=== PATIENT | female | born 1970 | race Caucasian/White ===

== ENCOUNTER 2018-01-05 12:00 | Outpatient (REF) | payer BC, SELFPAY ==
[2018-01-07 18:07] LABS: Cortisol, U 18 mcg/24 h (3.5-45); Urine Volume 1925 mL
== END 2018-01-05 12:20 ==
LOC: LBN 12:00
PROVIDERS: Visit Provider Internal Medicine Endocrinology, Diabetes & Metabolism
DX: R63.5 Abnormal weight gain (principal)
CPT/HCPCS: 81050; 82530; 83789

== ENCOUNTER 2018-01-07 08:13 | Outpatient (REF) | payer BC, SELFPAY ==
[2018-01-11 21:45] LABS: Cortisol, U 21 mcg/24 h (3.5-45); Urine Volume 2125 mL
== END 2018-01-07 08:33 ==
LOC: LBN 08:13
PROVIDERS: Internal Medicine Endocrinology, Diabetes & Metabolism; PCP Physician Assistant Medical; Visit Provider Physician Assistant Medical
DX: R63.5 Abnormal weight gain (principal)
CPT/HCPCS: 81050; 82530; 83789

== ENCOUNTER 2018-01-10 07:42 | Outpatient (CLI) | payer BC, SELFPAY ==
[2018-01-10 22:28] LABS: Dexamethasone Suppression 1 ug/dl
== END 2018-01-10 08:02 ==
PROVIDERS: PCP Physician Assistant Medical; Visit Provider Internal Medicine Endocrinology, Diabetes & Metabolism
DX: R63.5 Abnormal weight gain (principal)
CPT/HCPCS: 36415; 82533

== ENCOUNTER 2018-02-03 00:24 | Outpatient (CLI) | payer BC, SELFPAY ==
--- NOTE | 2018-02-03 09:00 | DI.US_ITS ---
SYMPTOM/DIAGNOSIS: NECK MASS, R22.1 SOFT TISSUE NECK ULTRASOUND: Soft tissue ultrasound of the right inferior cervical region was performed to evaluate palpable abnormalities. There are two rounded, low echogenicity but solid masses seen in the supraclavicular region measuring about 2 and 3 mm. in greatest diameter respectively, these appear essentially unchanged in comparison with the previous examination of 07/21/17. CONCLUSION: Stable small solid masses or cysts as described above.
== END 2018-02-03 00:44 ==
PROVIDERS: PCP Physician Assistant Medical; Visit Provider Otolaryngology
DX: R22.1 Localized swelling, mass and lump, neck (principal)
CPT/HCPCS: 76536

== ENCOUNTER 2018-04-12 14:34 | Emergency (ER) | payer BC, SELFPAY ==
[2018-04-12 14:36] VITALS: BP 162/86; PULSE 18; RESP 18; TEMP 36.9; O2SAT 98
--- NOTE | 2018-04-12 14:48 | W.ED.GENAD ---
Discharge Plan Disposition Patient Disposition: HOME Condition: Stable Discharge Details Chief Complaint: RespSymp Clinical Impression: Right maxillary sinusitis Primary Care Provider: Lina Gordon ED Provider: Stephon Birmingham Home Meds and New Rx's Prescriptions: New amoxicillin-pot clavulanate 875-125 mg tablet 1 tab PO BID 10 Days Qty: 20 RF: 0 Continued furosemide [Lasix] 20 MG tablet 20 mg PO DAILY RF: 0 diltiazem HCl 120 MG tablet 180 mg PO DAILY RF: 0 albuterol sulfate 8.5 GM HFA aerosol inhaler 1 puff Inhalation PRN RF: 0 montelukast [Singulair] 10 MG tablet 10 mg PO DAILY RF: 0 armodafinil [Nuvigil] 250 MG tablet 250 mg PO DAILY RF: 0 albuterol sulfate 2.5 MG/3 ML solution for nebulization 2.5 mg Inhalation QID PRN PRN (Reason: Wheezing) Qty: 20 RF: 0 propranolol 10 MG tablet 10 mg PO DAILY RF: 0 Discharge Instructions Instructions: Sinusitis (ED) Additional Instructions: Home to rest today. Small, frequent sips of fluids to maintain hydration. Take antibiotics as prescribed. Continue all regular medications. Follow-up with regular doctor if not improving in 5 days time. Return to the ER for any acute concerns Medical Decision Making 47-year-old female with underlying reactive airway disease presents with 2-3 days of cough, congestion, production of green sputum and now with right ear pain. Chest. A right otitis media and her presentation is consistent with bronchitis with sinusitis. I will treat with a course of Augmentin. Do not feel that she requires steroids as there is no significant wheeze & she subjectively does not have shortness of breath. Oxygenation is normal. Discussed with her home management. She stable for discharge at this time. HPI General Mode of arrival: ambulatory. Date/Time Provider Initiated Documentation: 04/12/18 14:41. Limitations to Documentation: no limitations. Information obtained by: patient. History of Present Illness 47 year old F presents to the emergency department with the chief complaint of Cough and congestion with right ear pain, sputum production, x2d, described as moderate, and is localized to the face and right. Patient reports no radiation. Patient started experiencing this day(s) and it has been constant. No relieving factors improve symptom(s), No exacerbating factors reported . Patient notes cough and fever/chills; denies shortness of breath. Related Data Home Medications Medication Instructions Recorded Confirmed albuterol sulfate 1 puff INHALATION PRN 09/18/13 05/07/16 albuterol sulfate 2.5 mg INHALATION QID PRN PRN #20 01/07/16 04/12/18 vial armodafinil [Nuvigil] 250 mg PO DAILY 01/07/16 04/12/18 montelukast [Singulair] 10 mg PO DAILY 01/07/16 04/12/18 propranolol 10 mg PO DAILY 04/20/16 04/12/18 furosemide [Lasix] 20 mg PO DAILY tab-cap 05/27/16 04/12/18 diltiazem HCl 180 mg PO DAILY 01/28/17 04/12/18 amoxicillin-pot clavulanate 1 tab PO BID 10 Days #20 tab 04/12/18 Previous Rx's Medication Instructions Recorded albuterol sulfate 2.5 mg INHALATION QID PRN PRN #20 01/07/16 vial amoxicillin-pot clavulanate 1 tab PO BID 10 Days #20 tab 04/12/18 Allergies Allergy/AdvReac Type Severity Reaction Status Date / Time DANDER Allergy Intermediate Uncoded 01/11/17 09:38 DUST Allergy Mild Uncoded 01/11/17 09:38 MOLD MILDEW Allergy Mild Uncoded 01/11/17 09:38 TREES Allergy Mild Uncoded 01/11/17 09:38 General Stated Complaint: RespSymp WESLY: 3 Review of Systems Review of Systems No change to diet, no vomiting, no wheezing. 6 systems reviewed and otherwise negative [facility] Surgical History Biopsy, Soft Tissue (04/27/16) Social History Smoking/Tobacco Use Status: Never Exam Narrative Exam Narrative: GEN: awake, alert, oriented 3. Pleasant, well groomed, interactive. HEAD: Normocephalic, atraumatic ENT: Mucous membranes moist, oropharynx unremarkable, External ear exam unremarkable, right tympanic membrane is distended and erythematous. EYES: PERRL, EOMI NECK: Full ROM, no ML, no menigismus CHEST/RESP: Nontender, clear to auscultation bilateral, no wheeze/rhonchi/rales CARDIOVASCULAR: RRR, no murmur, rub chary. 2+ Rad pulse bilateral ABDOMEN: Soft, nontender, no mass. +Bowel sounds EXT: Full ROM, no edema, no rash Neuro: Grossly normal neurologic exam, conversant, interactive. Psych: Speech fluent, thoughts congruent, affect normal Course Vital Signs Temperature 36.9 C 04/12/18 14:36 Pulse 18 L 04/12/18 14:36 Respiratory Rate 18 04/12/18 14:36 Blood Pressure 162/86 H 04/12/18 14:36 Pulse Oximetry 98 04/12/18 14:36 Temperature 36.9 C 04/12/18 14:36 Temperature Source Temporal Artery Scan 04/12/18 14:36 Pulse 18 L 04/12/18 14:36 Respiratory Rate 18 04/12/18 14:36 Blood Pressure 162/86 H 04/12/18 14:36 Blood Pressure Position Sitting 04/12/18 14:36 Pulse Oximetry 98 04/12/18 14:36 Oxygen Delivery Method Room Air 04/12/18 14:36 Oxygen Flow Rate 0 04/12/18 14:36 Pain Level 5 04/12/18 14:36
--- NOTE | 2018-04-12 14:51 | ED.GENADUL_ITS ---
Discharge Plan Disposition Patient Disposition: HOME Condition: Stable Discharge Details Chief Complaint: RespSymp Clinical Impression: Right maxillary sinusitis Primary Care Provider: Lina Gordon ED Provider: Stephon Birmingham Home Meds and New Rx's Prescriptions: New amoxicillin-pot clavulanate 875-125 mg tablet 1 tab PO BID 10 Days Qty: 20 RF: 0 Continued furosemide [Lasix] 20 MG tablet 20 mg PO DAILY RF: 0 diltiazem HCl 120 MG tablet 180 mg PO DAILY RF: 0 albuterol sulfate 8.5 GM HFA aerosol inhaler 1 puff Inhalation PRN RF: 0 montelukast [Singulair] 10 MG tablet 10 mg PO DAILY RF: 0 armodafinil [Nuvigil] 250 MG tablet 250 mg PO DAILY RF: 0 albuterol sulfate 2.5 MG/3 ML solution for nebulization 2.5 mg Inhalation QID PRN PRN (Reason: Wheezing) Qty: 20 RF: 0 propranolol 10 MG tablet 10 mg PO DAILY RF: 0 Discharge Instructions Instructions: Sinusitis (ED) Additional Instructions: Home to rest today. Small, frequent sips of fluids to maintain hydration. Take antibiotics as prescribed. Continue all regular medications. Follow-up with regular doctor if not improving in 5 days time. Return to the ER for any acute concerns Medical Decision Making 47-year-old female with underlying reactive airway disease presents with 2-3 days of cough, congestion, production of green sputum and now with right ear pain. Chest. A right otitis media and her presentation is consistent with bronchitis with sinusitis. I will treat with a course of Augmentin. Do not feel that she requires steroids as there is no significant wheeze & she subjectively does not have shortness of breath. Oxygenation is normal. Discussed with her home management. She stable for discharge at this time. HPI General Mode of arrival: ambulatory . Date/Time Provider Initiated Documentation: 04/12/18 14:41 . Limitations to Documentation: no limitations . Information obtained by: patient . History of Present Illness 47 year old F presents to the emergency department with the chief complaint of Cough and congestion with right ear pain, sputum production, x2d, described as moderate, and is localized to the face and right. Patient reports no radiation. Patient started experiencing this day(s) and it has been constant. No relieving factors improve symptom(s), No exacerbating factors reported . Patient notes cough and fever/chills; denies shortness of breath. Related Data Home Medications Medication Instructions Recorded Confirmed albuterol sulfate 1 puff INHALATION PRN 09/18/13 05/07/16 albuterol sulfate 2.5 mg INHALATION QID PRN PRN #20 01/07/16 04/12/18 vial armodafinil [Nuvigil] 250 mg PO DAILY 01/07/16 04/12/18 montelukast [Singulair] 10 mg PO DAILY 01/07/16 04/12/18 propranolol 10 mg PO DAILY 04/20/16 04/12/18 furosemide [Lasix] 20 mg PO DAILY tab-cap 05/27/16 04/12/18 diltiazem HCl 180 mg PO DAILY 01/28/17 04/12/18 amoxicillin-pot clavulanate 1 tab PO BID 10 Days #20 tab 04/12/18 Previous Rx's Medication Instructions Recorded albuterol sulfate 2.5 mg INHALATION QID PRN PRN #20 01/07/16 vial amoxicillin-pot clavulanate 1 tab PO BID 10 Days #20 tab 04/12/18 Allergies Allergy/AdvReac Type Severity Reaction Status Date / Time DANDER Allergy Intermediate Uncoded 01/11/17 09:38 DUST Allergy Mild Uncoded 01/11/17 09:38 MOLD MILDEW Allergy Mild Uncoded 01/11/17 09:38 TREES Allergy Mild Uncoded 01/11/17 09:38 General Stated Complaint: RespSymp WESLY: 3 Review of Systems Review of Systems No change to diet, no vomiting, no wheezing. 6 systems reviewed and otherwise negative [facility] Surgical History Biopsy, Soft Tissue (04/27/16) Social History Smoking/Tobacco Use Status: Never Exam Narrative Exam Narrative: GEN: awake, alert, oriented 3. Pleasant, well groomed, interactive. HEAD: Normocephalic, atraumatic ENT: Mucous membranes moist, oropharynx unremarkable, External ear exam unremarkable, right tympanic membrane is distended and erythematous. EYES: PERRL, EOMI NECK: Full ROM, no ML, no menigismus CHEST/RESP: Nontender, clear to auscultation bilateral, no wheeze/rhonchi/rales CARDIOVASCULAR: RRR, no murmur, rub chary. 2+ Rad pulse bilateral ABDOMEN: Soft, nontender, no mass. +Bowel sounds EXT: Full ROM, no edema, no rash Neuro: Grossly normal neurologic exam, conversant, interactive. Psych: Speech fluent, thoughts congruent, affect normal Course Vital Signs Temperature 36.9 C 04/12/18 14:36 Pulse 18 L 04/12/18 14:36 Respiratory Rate 18 04/12/18 14:36 Blood Pressure 162/86 H 04/12/18 14:36 Pulse Oximetry 98 04/12/18 14:36 Temperature 36.9 C 04/12/18 14:36 Temperature Source Temporal Artery Scan 04/12/18 14:36 Pulse 18 L 04/12/18 14:36 Respiratory Rate 18 04/12/18 14:36 Blood Pressure 162/86 H 04/12/18 14:36 Blood Pressure Position Sitting 04/12/18 14:36 Pulse Oximetry 98 04/12/18 14:36 Oxygen Delivery Method Room Air 04/12/18 14:36 Oxygen Flow Rate 0 04/12/18 14:36 Pain Level 5 04/12/18 14:36
[2018-04-12] MEDS: Amoxicillin 875/Clav. 125 TAB PO (15:00)
[2018-04-12 15:01] VITALS: PULSE 88; RESP 15; TEMP 36.3
== END 2018-04-12 15:06 | disposition home or self-care (01) ==
PROVIDERS: Emergency Provider Emergency Medicine; PCP Physician Assistant Medical
DX: J01.00 Acute maxillary sinusitis, unspecified (principal)
CPT/HCPCS: 99283

== ENCOUNTER 2018-05-04 13:36 | Outpatient (CLI) | payer BC, SELFPAY ==
--- NOTE | 2018-05-04 12:46 | DI.RAD_ITS ---
SYMPTOMS/DIAGNOSIS: BRONCHITIS, BRONCHOSPASM, J20.9 PA AND LATERAL CHEST: The heart is normal in size. The lungs are clear. The mediastinal structures and pleura appear intact. CONCLUSION: Normal chest.
== END 2018-05-04 13:56 ==
PROVIDERS: PCP Physician Assistant Medical; Visit Provider Physician Assistant Medical
DX: J20.9 Acute bronchitis, unspecified (principal)
CPT/HCPCS: 71046

== ENCOUNTER 2018-06-10 14:00 | Outpatient (REF) | payer BC, SELFPAY ==
[2018-06-10 19:22] LABS: ALT 18 U/L (12-78); AST 16 U/L (15-37); Albumin 3.1 g/dL (3.4-5.0); Alkaline Phosphatase 110 U/L (46-116); Anion Gap 5.8 mmol/L (3-11); BUN 13 mg/dL (7-18); Bilirubin, Total 0.3 mg/dL (0.2-1.0); CO2 31.2 mmol/L (21.0-32.0); CREATININE 0.98 mg/dL (0.55-1.02); Calcium 9.1 mg/dL (8.5-10.1); Chloride 104 mmol/L (98-107); Glucose 131 mg/dL (70-100); Potassium 4.4 mmol/L (3.5-5.1); Sodium 141 mmol/L (136-145); Total Protein 7.4 g/dL (6.4-8.2)
[2018-06-10 19:47] LABS: NT-proBNP 36 pg/mL
== END 2018-06-10 14:20 ==
LOC: NCHCN 14:00
PROVIDERS: PCP Physician Assistant Medical; Visit Provider Physician Assistant Medical
DX: I10 Essential (primary) hypertension (principal); R60.9 Edema, unspecified
CPT/HCPCS: 80053; 83880

== ENCOUNTER 2018-08-11 00:43 | Outpatient (CLI) | payer BC, SELFPAY ==
--- NOTE | 2018-08-11 14:52 | DI.MAMMO_ITS ---
SYMPTOMS/DIAGNOSIS: TENDER AREA OF RIGHT TAIL OF BREAST, MASTALGIA, N54.4 MAMMOGRAMS: Mammograms were interpreted according to the usual protocol including computer analysis with CAD system, tomosynthesis and C view imaging. The breasts are of moderate density with fairly symmetrical distribution of fibroglandular tissue. No dominant mass or clumped microcalcification is identified in either breast. Current examination is compared with the previous examinations including October 2016 and there has been no gross interval change in appearance in comparison with the previous studies. CONCLUSION: No specific evidence of malignancy at this time. Routine screening examinations are suggested at yearly intervals in this age group according to the ACS/ACR guidelines. Category 1, breast density category B. Please note that if there is a clinical suspicion of a palpable breast lesion, additional evaluation with ultrasound would be recommended. MQSA ASSESSMENT OF FINDINGS: Negative. Category 1. Patient will receive a letter notifying them of these results. BI-RADS category B. There are scattered areas of fibroglandular density.
== END 2018-08-11 01:03 ==
PROVIDERS: PCP Physician Assistant Medical; Visit Provider Obstetrics & Gynecology
DX: N64.4 Mastodynia (principal)
CPT/HCPCS: 77062; 77066; G0279

== ENCOUNTER 2019-03-04 15:02 | Emergency (ER) | payer BC, OTHER, SELFPAY ==
[2019-03-04 15:17] VITALS: BP 156/66; PULSE 87; RESP 18; TEMP 37.1; O2SAT 96
--- NOTE | 2019-03-04 15:31 | DI.RAD_ITS ---
EXAM: XR FOOT LT COMPLETE INDICATION: s/p fall, r/o acute fracture. COMPARISON: No exams were available for comparison TECHNIQUE: 2D digital imaging was performed. FINDINGS: There is spurring at the Achilles insertion on the calcaneus. There is an accessory navicular. Ther e are mild degenerative changes of the 1st MTP joint and interphalangeal joint of the great toe. No fracture or dislocation is seen. IMPRESSION: No acute abnormality.
--- NOTE | 2019-03-04 15:31 | DI.RAD_ITS ---
EXAM: XR ANKLE LT COMPLETE INDICATION: s/p fall, r/o acute fracture. COMPARISON: No exams were available for comparison TECHNIQUE: 2D digital imaging was performed. FINDINGS: There is soft tissue swelling around both malleoli. No fracture or ankle mortise disruption is seen. There is no talar dome defect. There are minimal degenerative changes. There is spurring at the A chilles insertion on the calcaneus. IMPRESSION: No acute bony abnormality.
--- NOTE | 2019-03-04 15:33 | W.ED.GENAD ---
Discharge Plan Disposition Patient Disposition: HOME Condition: Stable Discharge Details Chief Complaint: Orthopedic Clinical Impression: Ankle sprain, Foot sprain Primary Care Provider: Lina Gordon ED Provider: Kiara Blackburn Home Meds and New Rx's Prescriptions: Continued furosemide [Lasix] 20 MG tablet 20 mg PO DAILY PRNRF: 0 diltiazem HCl 120 MG tablet 180 mg PO DAILY RF: 0 albuterol sulfate 8.5 GM HFA aerosol inhaler 1 puff Inhalation PRN RF: 0 montelukast [Singulair] 10 MG tablet 10 mg PO DAILY RF: 0 armodafinil [Nuvigil] 250 MG tablet 250 mg PO DAILY RF: 0 albuterol sulfate 2.5 MG/3 ML solution for nebulization 2.5 mg Inhalation QID PRN PRN (Reason: Wheezing) Qty: 20 RF: 0 propranolol 10 MG tablet 10 mg PO DAILY RF: 0 lisinopril 20 mg Tablet 20 mg PO DAILY RF: 0 Discharge Instructions Instructions: Ankle Sprain (ED), Foot Sprain (ED) Additional Instructions: Rest, ice, elevate your left foot and ankle as much as possible. Alternate Tylenol and Motrin as needed directed for pain. Call your primary care doctor or hospital admitting clerk to schedule a follow-up appointment for reevaluation. Return to the emergency department if you develop any worsening or new concerning symptoms. Discharge Data Discharge Date/Time-TO BE ENTERED AT DEPARTURE: 03/04/19 17:29 Discharge Physician: Kiara Blackburn Medical Decision Making 0020 -- 48-year-old female presents with left foot pain after fall on ice prior to arrival. Patient states she was walking when she slipped on ice and fell twisting her left foot and onto her right side. She has some neck pain, right hip, right knee and right ankle pain but states this is minimal and is not concerned about these areas. She denies head injury, back pain, chest or abdominal pain. Left lateral and medial malleolar, left heel, arch and foot tenderness without bony deformity or evidence of infection. Neurovascular intact. No evidence of trauma or pain with ROM to remainder of left lower extremity or right lower extremity. C-spine/T-spine/L-spine nontender. Will obtain left foot and ankle x-rays. 1739 --x-rays negative for acute fracture. Patient states she cannot bear weight on her left heel. Patient was offered stirrup splint, Arnaud wrap, crutches but she states she will be unable to use crutches. She requests Arnaud wrap and walking boot. She is advised to follow-up with primary care doctor or orthopedist for reevaluation and to return here with any concerns. Medical Records Medical records reviewed: Yes I reviewed the patient's medical records. Imaging Data Radiologic Study: Radiologist's impression: XR Left Ankle Exam date and time: 03/04/2019 3:33 PM Age: 48 years old Clinical history: Pain; Ankle; Left; Patient HX: S/P fall R/O acute fracture TECHNIQUE: Imaging protocol: XR Left ankle. Views: 3 or more views. COMPARISON: BILATERAL EXTREMITY US 04/20/2016 3:29 PM FINDINGS: Bones/joints: No acute fracture or dislocation. Prominent spurring from the calcaneus at insertion of Achilles tendon Soft tissues: Diffuse swelling around the ankle. No foreign body IMPRESSION: Moderate ankle swelling. XR Left Foot Complete Exam date and time: 03/04/2019 3:57 PM Age: 48 years old Clinical history: Other: R/O acute fracture TECHNIQUE: Imaging protocol: XR Left foot. Views: 3 or more views. COMPARISON: BILATERAL EXTREMITY US 04/20/2016 3:29 PM FINDINGS: Bones/joints: Accessory navicular is essentially noted. This is rarely symptomatic. No acute fracture or dislocation. Soft tissues: There is no radiopaque foreign body.There is no gas in the soft tissue. IMPRESSION: No acute abnormality HPI General Mode of arrival: ambulatory. Date/Time Provider Initiated Documentation: 03/04/19 15:08. Limitations to Documentation: no limitations. Information obtained by: patient. History of Present Illness 48 year old F presents to the emergency department with the chief complaint of left foot pain , described as moderate, Quality is described as aching, and is localized to the lower extremity (L foot). Patient reports radiation to (L ankle). Patient started experiencing this minute(s) and it has been constant. No relieving factors improve symptom(s), No exacerbating factors reported . Patient notes other (also fell onto R side but denies significant R neck/hip/knee/foot pain). Patient did receive the following treatments prior to arrival, none Related Data Home Medications Medication Instructions Recorded Confirmed albuterol sulfate 1 puff INHALATION PRN 09/18/13 03/04/19 albuterol sulfate 2.5 mg INHALATION QID PRN PRN #20 01/07/16 03/04/19 vial armodafinil [Nuvigil] 250 mg PO DAILY 01/07/16 03/04/19 montelukast [Singulair] 10 mg PO DAILY 01/07/16 03/04/19 propranolol 10 mg PO DAILY 04/20/16 03/04/19 furosemide [Lasix] 20 mg PO DAILY PRN tab-cap 05/27/16 03/04/19 diltiazem HCl 180 mg PO DAILY 01/28/17 03/04/19 lisinopril 20 mg PO DAILY 03/04/19 03/04/19 Previous Rx's Medication Instructions Recorded albuterol sulfate 2.5 mg INHALATION QID PRN PRN #20 01/07/16 vial Allergies Allergy/AdvReac Type Severity Reaction Status Date / Time DANDER Allergy Intermediate Uncoded 03/04/19 15:31 DUST Allergy Mild Uncoded 03/04/19 15:31 MOLD MILDEW Allergy Mild Uncoded 03/04/19 15:31 TREES Allergy Mild Uncoded 03/04/19 15:31 General Stated Complaint: Orthopedic WESLY: 4 Review of Systems All systems reviewed & are unremarkable except as noted in HPI and below PFSH Medical History (Updated 03/04/19 @ 15:39 by Kiara Blackburn DO) Anxiety (Chronic) Asthma (Chronic) Depression (Chronic) Pharyngoesophageal dysphagia (Acute) Surgical History Biopsy, Soft Tissue (04/27/16) left saleem, punch biopsy, leukocytoclastic vasculitis Social History Smoking/Tobacco Use Status: Never Alcohol Intake: current Alcohol Intake frequency: holidays/special occasions only Drug use: Never Substance use type: does not use Do you feel safe in your relationship?: Yes Exam Const General: cooperative, healthy appearing and no acute distress HENMT Head: normal to inspection Mouth: oral mucosae normal Eyes General: appearance normal, both eyes and all related structures Neck Neck: normal visual inspection Resp Effort & Inspection: normal respiratory effort and able to speak in complete sentences Cardio Rate: regular rate Back/Spine/Pelvis Cervical Spine: No cervical spinal tenderness Thoracic/Lumbar Spine: No thoracic spinal tenderness and No lumbar spinal tenderness Skin General skin exam: no rashes or lesions noted Neuro General: alert, awake and oriented x3 Motor: muscle tone normal throughout Extrem Other: Tenderness to palpation left lateral and medial malleolus as well as heel and arch of foot. There is no edema, ecchymosis, erythema or bony deformity. Left PT/DP pulses intact. Right hip without evidence of trauma, range of motion without pain. Right knee no pain with range of motion or ligamentous laxity. Right ankle and foot without evidence of trauma or pain with range of motion. Right DP/PT pulses intact. Psych Appearance: grossly normal Affect: normal affect Course Vital Signs Vital signs: Vital Signs Temperature 98.8 F 03/04/19 15:17 Pulse 87 03/04/19 15:17 Respiratory Rate 18 03/04/19 15:17 Blood Pressure 156/66 H 03/04/19 15:17 Pulse Oximetry 96 03/04/19 15:17 Temperature 98.8 F 03/04/19 15:17 Temperature Source Temporal Artery Scan 03/04/19 15:17 Pulse 87 03/04/19 15:17 Respiratory Rate 18 03/04/19 15:17 Respiratory Effort Non-Labored 03/04/19 15:24 Blood Pressure 156/66 H 03/04/19 15:17 Blood Pressure Position Supine 03/04/19 15:17 Pulse Oximetry 96 03/04/19 15:17 Oxygen Delivery Method Room Air 03/04/19 15:17 Oxygen Flow Rate 0 03/04/19 15:17 Pain Level 3 03/04/19 15:17 Comment 03/04/19 15:17
[2019-03-04] MEDS: Ibuprofen 600 MG TAB PO (15:40)
--- NOTE | 2019-03-04 16:20 | DI.VRAD_ITS ---
PROCEDURE INFORMATION: Exam: XR Left Ankle Exam date and time: 03/04/2019 3:33 PM Age: 48 years old Clinical history: Pain; Ankle; Left; Patient HX: S/P fall R/O acute fracture TECHNIQUE: Imaging protocol: XR Left ankle. Views: 3 or more views. COMPARISON: BILATERAL EXTREMITY US 04/20/2016 3:29 PM FINDINGS: Bones/joints: No acute fracture or dislocation. Prominent spurring from the calcaneus at insertion of Achilles tendon Soft tissues: Diffuse swelling around the ankle. No foreign body IMPRESSION: Moderate ankle swelling Dictated and Authenticated by: Oliver Almendarez MD. Ordering:CASS Craig MD
--- NOTE | 2019-03-04 16:23 | DI.VRAD_ITS ---
PROCEDURE INFORMATION: Exam: XR Left Foot Complete Exam date and time: 03/04/2019 3:57 PM Age: 48 years old Clinical history: Other: R/O acute fracture TECHNIQUE: Imaging protocol: XR Left foot. Views: 3 or more views. COMPARISON: BILATERAL EXTREMITY US 04/20/2016 3:29 PM FINDINGS: Bones/joints: Accessory navicular is essentially noted. This is rarely symptomatic. No acute fracture or dislocation. Soft tissues: There is no radiopaque foreign body.There is no gas in the soft tissue. IMPRESSION: No acute abnormality Dictated and Authenticated by: Oliver Almendarez MD. Ordering:CASS Craig MD
[2019-03-04 17:32] VITALS: BP 159/78; PULSE 78; RESP 18; TEMP 36.8; O2SAT 98
== END 2019-03-04 17:29 | disposition home or self-care (01) ==
PROVIDERS: Emergency Provider Physician Assistant; PCP Physician Assistant Medical
DX: S93.402A Sprain of unspecified ligament of left ankle, initial encounter (principal); W00.0XXA Fall on same level due to ice and snow, initial encounter; X50.9XXA Other and unspecified overexertion or strenuous movements or postures, initial encounter; S93.602A Unspecified sprain of left foot, initial encounter
CPT/HCPCS: 29515; 99284; 73610; 73630; 99285; L4361

== ENCOUNTER 2019-03-14 14:29 | Outpatient (CLI) | payer BC, OTHER, SELFPAY ==
--- NOTE | 2019-03-14 13:13 | DI.RAD_ITS ---
EXAM: XR SHOULDER RT COMPLETE 2+V INDICATION: BILAT SHOULDER PAIN M25.519. COMPARISON: No exams were available for comparison TECHNIQUE: 2D digital imaging was performed. FINDINGS: The bones are intact. The joint spaces are well maintained. No acute fracture or dislocation is see n. No suspicious lytic or sclerotic lesions are identified. The soft tissues are unremarkable. The re is a small enthesophyte at the deltoid insertion onto the acromion. IMPRESSION: No acute abnormality.
--- NOTE | 2019-03-14 13:14 | DI.RAD_ITS ---
EXAM: XR SHOULDER LT COMPLETE 2+V INDICATION: BILAT SHOULDER PAIN M25.519. COMPARISON: XR SHOULDER RT COMPLETE 2+V from 03/14/2019 TECHNIQUE: 2D digital imaging was performed. FINDINGS: The bones are normally mineralized. No acute fracture or dislocation is seen. Minimal spurring is s een at the lateral aspect of the acromion. The glenohumeral joint is well maintained. The soft tiss ues are unremarkable. IMPRESSION: No acute abnormality.
== END 2019-03-14 14:49 ==
PROVIDERS: PCP Physician Assistant Medical; Visit Provider Physician Assistant Medical
DX: M25.511 Pain in right shoulder (principal); M25.512 Pain in left shoulder; M75.81 Other shoulder lesions, right shoulder
CPT/HCPCS: 73030

== ENCOUNTER 2019-04-25 01:32 | Outpatient (CLI) | payer OTHER, BC, SELFPAY ==
[2019-04-25] MEDS: Barium Sulfate 60% W/V 355 ML BTL PO (10:16)
[2019-04-25] MEDS: Barium Sulfate 700 MG TAB PO (10:17)
--- NOTE | 2019-04-25 10:18 | DI.RAD_ITS ---
EXAM: RF BARIUM SWALLOW CLINICAL HISTORY: PHARYNGOESOPHAGEAL DYSPHAGIA, R13.14 TECHNIQUE: 2D and realtime digital imaging was performed. Fluoro time: 2 min, 45 sec COMPARISON: XR CHEST 2V PA LATERAL from 05/04/2018 FINDINGS: Initial plain film of the chest reveals clear lungs. On the lateral view of the neck, there appears to be a soft tissue mass in the airway just above the epiglottis. Esophagus: The esophagus is patent with no evidence for erosions, fold thickening, or strictures. T here is a pedunculated soft tissue mass which appears to arise from the base of the tongue and extend s inferiorly. It measures approximately 2.5 cm. There does appear to be widening of the lower orop harynx and hypopharynx. With regards to the motility, there is a normal primary stripping wave. No t ertiary contractions were noted. There is a small hiatal hernia. No gastroesophageal reflux is ident ified during the examination. There was no aspiration during the examination. IMPRESSION: Pedunculated soft tissue mass in the hypopharynx suspicious for polyp. Neoplasm cannot be excluded. Upper endoscopy is recommended for further evaluation.
== END 2019-04-25 01:52 ==
PROVIDERS: PCP Physician Assistant Medical; Visit Provider Otolaryngology
DX: R13.14 Dysphagia, pharyngoesophageal phase (principal); J39.2 Other diseases of pharynx; D10.7 Benign neoplasm of hypopharynx; K44.9 Diaphragmatic hernia without obstruction or gangrene
CPT/HCPCS: 74221; J3490

== ENCOUNTER 2019-09-07 03:38 | Outpatient (CLI) | payer OTHER, BC, SELFPAY ==
[2019-09-07 12:23] LABS: Abs Immature Grans 0.05 k/cumm (0.0-0.09); Absolute Basophil Count 0.04 k/cumm (0.0-0.2); Absolute Eosinophil Count 0.38 k/cumm (0.0-0.7); Absolute Monocyte Count 0.43 k/cumm (0.11-0.7); Absolute Neutrophil Count 7.47 k/cumm (1.2-6.7); Basophils % 0.4; Eosinophils % 3.5; HCT 41.9 % (36.0-46.0); HGB 13.2 g/dL (12.0-15.5); Immature Grans % 0.5 %; Lymphocytes % 23.7; Mean Corp. HGB Concentration 31.5 g/dL (32.0-36.0); Mean Corpuscular Hemoglobin 27.9 pg (27.0-33.0); Mean Corpuscular Volume 88.6 fL (80-95); Mean Platelet Volume 10.2 fL (8.0-11.0); Monocytes % 3.9; Platelet Count 339 x1000/uL (130-400); RBC 4.73 m/cumm (4.00-5.20); RBC Distribution Width 14.5 % (11.7-14.6); White Blood Cell Count 10.99 k/cumm (4.4-10.8)
[2019-09-07 13:30] LABS: Iron 53 ug/dL (50-170); Total Iron Binding Capacity 244 ug/dL (250-450); Transferrin Sat 22 % (15-50)
[2019-09-07 13:38] LABS: ESR 46 mm/hr (0-30)
[2019-09-07 14:07] LABS: ALT 29 U/L (14-59); AST 19 U/L (15-37); Albumin 3.3 g/dL (3.4-5.0); Alkaline Phosphatase 117 U/L (46-116); Anion Gap 5.6 mmol/L (3-11); BUN 11 mg/dL (7-18); Bilirubin, Total 0.3 mg/dL (0.2-1.0); CO2 29.4 mmol/L (21.0-32.0); CREATININE 1.02 mg/dL (0.55-1.02); Calcium 8.7 mg/dL (8.5-10.1); Chloride 102 mmol/L (98-107); Estimated GFR 57.13 (mL/min/1.73m2); Ferritin 113 ng/mL (8-252); Folate 8.5 ng/mL (8.6-20.0); Glucose 145 mg/dL (74-106); Magnesium 2.1 mg/dL (1.8-2.4); Potassium 4.4 mmol/L (3.5-5.1); Sodium 137 mmol/L (136-145); TSH 1.98 uIU/mL (0.36-3.74); Total Protein 7.6 g/dL (6.4-8.2); Vitamin B12 402 pg/mL (193-986)
[2019-09-07 14:36] LABS: Creatine Kinase 45 U/L (26-192)
[2019-09-07 14:39] LABS: Vitamin D 25 Total 17.1 ng/ml (30-100)
[2019-09-07 21:32] LABS: Rheumatoid Factor <8.6 IU/mL (<12.0)
[2019-09-07 21:49] LABS: T3,Free 3.5 pg/mL (2.8-5.3)
[2019-09-08 10:41] LABS: Syphilis Serology (RPR) Negative (Negative)
[2019-09-08 11:53] LABS: Hepatitis C Ab w Rflx HCV PCR Negative (Negative)
[2019-09-08 15:07] LABS: ANA Interpretation Negative (Negative)
== END 2019-09-07 03:58 ==
PROVIDERS: PCP Physician Assistant Medical; Visit Provider Physical Medicine & Rehabilitation
DX: M79.10 Myalgia, unspecified site (principal); G47.9 Sleep disorder, unspecified; R53.83 Other fatigue; E61.1 Iron deficiency; E55.9 Vitamin D deficiency, unspecified; M89.9 Disorder of bone, unspecified
CPT/HCPCS: 36415; 80053; 82306; 82550; 85652; 86803; 82607; 82728; 82746; 83540; 83550; 83735; 84439; 84443; 84481; 85025; 86038; 86431; 86592

== ENCOUNTER 2020-01-12 04:21 | Outpatient (CLI) | payer OTHER, BC, SELFPAY ==
[2020-01-15 08:15] LABS: Vitamin D 25 Total 31.6 ng/ml (30-100)
== END 2020-01-12 04:41 ==
PROVIDERS: PCP Physician Assistant Medical; Visit Provider Physical Medicine & Rehabilitation
DX: E55.9 Vitamin D deficiency, unspecified (principal); M89.9 Disorder of bone, unspecified
CPT/HCPCS: 36415; 82306

== ENCOUNTER 2020-02-21 10:26 | Outpatient (CLI) | payer OTHER, BC, SELFPAY ==
[2020-02-25 15:22] LABS: Patient Race White; SARS-CoV-2 RNA Undetected (Undetected); SARS-CoV-2 Specimen Source Nasal
== END 2020-02-21 10:46 ==
PROVIDERS: PCP Physician Assistant Medical; Visit Provider Physician Assistant Medical
DX: Z20.828 Contact with and (suspected) exposure to other viral communicable diseases (principal)
CPT/HCPCS: U0003

== ENCOUNTER 2020-09-24 16:12 | Outpatient (REF) | payer BC, SELFPAY ==
[2020-09-24 19:35] LABS: Abs Immature Grans 0.08 10^3/uL (0.0-0.06); Absolute Basophil Count 0.08 10^3/uL (0.0-0.2); Absolute Lymphocyte Count 2.44 10^3/uL (1.2-3.4); Absolute Monocyte Count 0.48 10^3/uL (0.1-0.8); Basophils % 0.7; Eosinophils % 2.9; HCT 41.9 % (36.0-46.0); HGB 12.7 g/dL (11.2-15.7); Immature Grans % 0.7; Lymphocytes % 20.5; MCH 27.5 pg (27.0-33.0); MCHC 30.3 % (32.0-36.0); MCV 90.7 fL (80-95); MPV 10.9 fL (8.0-11.0); Neutrophils % 71.2; Nucleated RBC 0 %; Platelet Count 359 10^3/uL (130-400); RBC 4.62 10^6/uL (3.93-5.22); RDW-SD 46.8 fL; WBC 11.89 10^3/uL (4.4-10.8)
[2020-09-24 19:39] LABS: Absolute Eosinophil Count 0.34 10^3/uL (0.0-0.7); Absolute Neutrophil Count 8.47 10^3/uL (1.2-6.7)
[2020-09-24 20:01] LABS: ALT 22 U/L (14-59); AST 15 U/L (15-37); Albumin 3.1 g/dL (3.4-5.0); Alkaline Phosphatase 120 U/L (46-116); Anion Gap 8.8 mmol/L (3-11); BUN 13 mg/dL (7-18); Bilirubin, Total 0.3 mg/dL (0.2-1.0); CO2 28.2 mmol/L (21.0-32.0); Calcium 8.9 mg/dL (8.5-10.1); Calculated LDL 85 mg/dL (<100); Chloride 103 mmol/L (98-107); Cholesterol 172 mg/dL (<200); Estimated GFR 58.22 (mL/min/1.73m2); Glucose 172 mg/dL (74-106); HDL Cholesterol 32 mg/dL (40-60); Potassium 4.2 mmol/L (3.5-5.1); Sodium 140 mmol/L (136-145); Total Protein 7.4 g/dL (6.4-8.2); Triglyceride 276 mg/dL (<150)
== END 2020-09-24 16:13 | disposition home or self-care (01) ==
LOC: NCHCN 16:12
PROVIDERS: PCP Physician Assistant Medical; Visit Provider Physician Assistant Medical
DX: I10 Essential (primary) hypertension (principal); E11.9 Type 2 diabetes mellitus without complications
CPT/HCPCS: 80053; 80061; 85025

== ENCOUNTER 2021-06-02 02:51 | Outpatient (CLI) | payer MEDICAID, SELFPAY ==
[2021-06-02 17:09] LABS: Hemoglobin A1C 9.1 % (<5.7)
[2021-06-02 17:24] LABS: ALT 28 U/L (14-59); AST 17 U/L (15-37); Albumin 3.3 g/dL (3.4-5.0); Alkaline Phosphatase 116 U/L (46-116); Anion Gap 7.8 mmol/L (3-11); BUN 15 mg/dL (7-18); Bilirubin, Total 0.3 mg/dL (0.2-1.0); CO2 29.2 mmol/L (21.0-32.0); Calcium 8.6 mg/dL (8.5-10.1); Chloride 101 mmol/L (98-107); Estimated GFR 58.22 (mL/min/1.73m2); Glucose 180 mg/dL (74-106); Magnesium 2.1 mg/dL (1.8-2.4); Potassium 3.9 mmol/L (3.5-5.1); Sodium 138 mmol/L (136-145); Total Protein 7.6 g/dL (6.4-8.2)
== END 2021-06-02 02:52 | disposition home or self-care (01) ==
LOC: LBO 02:51
PROVIDERS: PCP Physician Assistant Medical; Visit Provider Physician Assistant Medical
DX: E11.9 Type 2 diabetes mellitus without complications (principal); F41.8 Other specified anxiety disorders
CPT/HCPCS: 36415; 80053; 83036; 83735

== ENCOUNTER 2022-10-29 09:03 | Outpatient (REF) | payer MEDICAID, SELFPAY ==
[2022-10-29 16:30] LABS: ALT 21 U/L (14-59); AST 19 U/L (15-37); Alkaline Phosphatase 111 U/L (46-116); Anion Gap 9.3 mmol/L (3-11); BUN 17 mg/dL (7-18); Bilirubin, Total 0.3 mg/dL (0.2-1.0); CO2 26.7 mmol/L (21.0-32.0); CREATININE 1.2 mg/dL (0.55-1.02); Calcium 8.9 mg/dL (8.5-10.1); Calculated LDL 88 mg/dL (<100); Chloride 103 mmol/L (98-107); Cholesterol 196 mg/dL (<200); Estimated GFR 53.79 (mL/min/1.73m2); Glucose 170 mg/dL (74-106); HDL Cholesterol 37 mg/dL (40-60); Hemoglobin A1C 8.1 % (<5.7); Potassium 4.2 mmol/L (3.5-5.1); Sodium 139 mmol/L (136-145); Total Protein 7.8 g/dL (6.4-8.2); Triglyceride 355 mg/dL (<150)
== END 2022-10-29 09:04 | disposition home or self-care (01) ==
LOC: NCHCN 09:03
PROVIDERS: PCP Physician Assistant Medical; Visit Provider Physician Assistant Medical
DX: E11.9 Type 2 diabetes mellitus without complications (principal); I10 Essential (primary) hypertension
CPT/HCPCS: 80053; 80061; 83036

== ENCOUNTER 2023-05-08 13:53 | Outpatient (REF) | payer MEDICAID, SELFPAY | END 2023-05-08 13:54 | disposition home or self-care (01) | LOC: LBN 13:53 | PROVIDERS: PCP Physician Assistant Medical; Visit Provider Physician Assistant | DX: N39.0 Urinary tract infection, site not specified (principal); R82.998 Other abnormal findings in urine | CPT/HCPCS: 87077; 87086; 87186 ==

== ENCOUNTER 2023-05-09 19:58 | Emergency (ER) | payer MEDICAID, SELFPAY ==
[2023-05-09 20:05] VITALS: BP 220/96; PULSE 80; RESP 18; TEMP 37.1; O2SAT 96
--- NOTE | 2023-05-09 20:11 | W.ED.GENAD ---
HPI General Date/Time Provider Initiated Documentation: 05/09/23 20:10. HPI Narrative: MDM This is an overall very well-appearing normothermic and not tachycardic 52-year-old female with UTI symptoms beginning approximately 5 days ago and now with new bilateral flank pain most consistent with pyelonephritis given E. coli treated with cephalexin yesterday for which patient will now receive 1 g of ceftriaxone IV along with changing of her prescription from cephalexin to cefpodoxime 200 mg twice daily. No pain out of proportion to suggest necrotizing soft tissue infection. No abdominal pain nor syncope to suggest ruptured AAA. No history of ureterolithiasis so will defer CT scan given bilateral flank pain. No rash to suggest zoster. No midline thoracic spinal tenderness to suggest spinal epidural abscess. No history of IV drug use to suggest increased risk for spinal epidural abscess. Not anticoagulated and no recent spinal instrumentation so doubt spinal epidural hematoma. No history of malignancy and based on the patient's age my suspicion for pathological fracture is low. She does report that she has had renal procedures during infancy and that she received a stent in 2010. Patient is nontoxic-appearing and certainly has risk factors for progressing to develop complication given past urological procedures. Will ask health window unit air conditioning mechanic Katarina to have the patient seen later this week by urology. I considered obtaining a CT scan but I did not feel that this was the best test of the patient's as my suspicion was low for stone. I do feel that she will benefit from a renal ultrasound. I have also asked Katarina to have her primary care order a bilateral renal ultrasound. 10:11 PM Basic metabolic panel showing no KESHIA. CBC with leukocytosis and mild thrombocytosis. Compared to prior leukocytosis is more prominent. Thrombocytosis is also increased. Urinalysis nitrite positive. Patient's blood pressure improved without intervention. I provided her a dose of ketorolac for pain. We discussed return for worsening pain inability tolerate p.o. or any fevers. She understood her return indications and was discharged with empiric trial of expectant outpatient management. Chronic conditions affecting the care of the patient: Elevated BMI History obtained from an outside historian: N/A External record review: N/A Medications: Ceftriaxone Social determinants of health affecting disposition: N/A Management discussed with: N/A Treatment/interventions considered: CT scan but deferred Response to therapies provided: N/A HPI This is a 52-year-old female with a remote history of ureteral stent and ureteral procedure during childhood arrived to the emergency department via private vehicle in the setting of back pain. Patient was seen yesterday at urgent care and diagnosed with urinary tract infection for which she received a course of cephalexin in addition to phenazopyridine. She reports that she has had 2 days of cephalexin. She reports her urinary symptoms began approximately 5 days ago. She took an [id number] test which was nitrite positive. Her urine culture is growing E. coli with sensitivities pending. She says that she feels a throbbing sensation in her bilateral flanks. She remotely had a ureteral stent placed in 2010. She has never had ureterolithiasis. She has had no fevers nor hematuria. She reports a urological surgery during childhood. No chest pain or shortness of breath. No nausea nor vomiting. Exam General: Well-appearing in no acute distress speaking in complete sentences. Head: Normocephalic, atraumatic. Eye: Extraocular eye movements intact. No conjunctival injection. No scleral icterus. Ear, nose, mouth, throat: Grossly normal inspection. Normal voice, handling secretions normally. Neck: Trachea midline. Cardiovascular: Well-perfused distal extremities. Regular rate and rhythm Respiratory: Nonlabored respiration. Clear lungs bilaterally Gastrointestinal: Nondistended abdomen. Soft nontender. Back: Bilateral CVA tenderness. No rash to back. Musculoskeletal: No edema. Moving all 4 extremities spontaneously. Skin: Normal for age and race, grossly normal temperature and turgor. No acute rash. Neurologic: Alert and appropriate, no apparent acute deficits. Psychiatric: Mood and manner are appropriate. Grooming and personal hygiene are appropriate. Related Data Home Medications Medication Instructions Recorded Confirmed albuterol sulfate 90 mcg/actuation 1 puff inhalation PRN 09/18/13 05/09/23 aerosol inhaler armodafinil 250 mg tablet (Nuvigil) 250 mg PO DAILY 01/07/16 05/09/23 montelukast 10 mg tablet 10 mg PO DAILY 01/07/16 05/09/23 (Singulair) propranolol 10 mg tablet 10 mg PO DAILY 04/20/16 05/09/23 furosemide 20 mg tablet (Lasix) 20 mg PO DAILY PRN 05/27/16 05/09/23 albuterol sulfate 2.5 mg/3 mL 2.5 mg (3 mL) inhalation Q6H PRN 12/18/23 01/28/24 (0.083 %) solution for nebulization shortness of breath or wheezing #180 mL dulaglutide 1.5 mg/0.5 mL mg subcut 03/29/23 03/29/23 subcutaneous pen injector (Trulicity) lisinopril 20 mg tablet 40 mg PO DAILY 03/29/23 05/09/23 empagliflozin 10 mg tablet 10 mg PO DAILY 05/08/23 05/09/23 (Jardiance) phenazopyridine 200 mg tablet 200 mg PO TID PRN pain 6 doses #6 05/08/23 05/09/23 (Pyridium) tabs cefpodoxime 200 mg tablet 200 mg PO Q12H #20 tabs 05/09/23 Previous Rx's Medication Instructions Recorded albuterol sulfate 2.5 mg/3 mL 2.5 mg (3 mL) inhalation Q6H PRN 03/29/23 (0.083 %) solution for nebulization shortness of breath or wheezing #180 mL phenazopyridine 200 mg tablet 200 mg PO TID PRN pain 6 doses #6 05/08/23 (Pyridium) tabs cefpodoxime 200 mg tablet 200 mg PO Q12H #20 tabs 05/09/23 Allergies Allergy/AdvReac Type Severity Reaction Status Date / Time DANDER Allergy Intermediate Uncoded 05/09/23 20:10 DUST Allergy Mild Uncoded 05/09/23 20:10 MOLD MILDEW Allergy Mild Uncoded 05/09/23 20:10 TREES Allergy Mild Uncoded 05/09/23 20:10 General Stated Complaint: Nk/Back Pain WESLY: 4 Course Vital Signs Vital signs: Vital Signs Temperature 37.1 C 05/09/23 20:05 Pulse 80 05/09/23 20:05 Respiratory Rate 18 05/09/23 20:05 Blood Pressure 220/96 H 05/09/23 20:05 Pulse Oximetry 96 05/09/23 20:05 Temperature 37.1 C 05/09/23 20:05 Temperature Source Temporal Artery Scan 05/09/23 20:05 Pulse 80 05/09/23 20:05 Respiratory Rate 18 05/09/23 20:05 Blood Pressure 220/96 H 05/09/23 20:05 Blood Pressure Position Sitting 05/09/23 20:05 Pulse Oximetry 96 05/09/23 20:05 Oxygen Delivery Method Room Air 05/09/23 20:05 Oxygen Flow Rate 0 05/09/23 20:05 Pain Level 4 05/09/23 20:05 Comment 07/20 back pain constant but throbbing 05/09/23 20:05 Medical Decision Making Quality:SDOH Health Related Social Needs: No Data to Display PFSH All Active Problems (Updated 05/09/23 @ 22:20 by Familia Booth MD) Pyelonephritis (Acute) Pharyngoesophageal dysphagia (Acute) Neck mass (Chronic) 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 Medical History Depression Anxiety Asthma Surgical History Biopsy, Soft Tissue (04/27/16) left saleem, punch biopsy, leukocytoclastic vasculitis Social History Smoking/Tobacco Use Status: Never Smoking risk assessment performed?: Yes Alcohol Intake: current Alcohol Intake frequency: holidays/special occasions only Drug use: Never Substance use type: does not use Do you feel safe at home: Yes Do you feel safe in your relationship?: Yes Discharge Plan Disposition Patient Disposition: Home Discharge Details Clinical Impression: Pyelonephritis Primary Care Provider: Lina Gordon ED Provider: Familia Booth Home Meds and New Rx's Prescriptions: New cefpodoxime 200 mg tablet 200 mg PO Q12H Qty: 20 0RF Rx Instructions: must administer with a meal/food Continued Trulicity 1.5 mg/0.5 mL pen injector subcut Patient Comments: INJECT 1.5MG (0.5ML) UNDER THE SKIN ONCE A WEEK albuterol sulfate 2.5 mg /3 mL (0.083 %) solution for nebulization 2.5 mg inhalation Q6H PRN (Reason: shortness of breath or wheezing) Qty: 180 0RF Jardiance 10 mg tablet 10 mg PO DAILY phenazopyridine [Pyridium] 200 mg tablet 200 mg PO TID PRN (Reason: pain) Qty: 6 0RF furosemide [Lasix] 20 MG tablet 20 mg PO DAILY PRN Patient Comments: 03/04/19-pt takes med PRN albuterol sulfate 8.5 GM HFA aerosol inhaler 1 puff Inhalation PRN montelukast [Singulair] 10 MG tablet 10 mg PO DAILY armodafinil [Nuvigil] 250 MG tablet 250 mg PO DAILY propranolol 10 MG tablet 10 mg PO DAILY lisinopril 20 mg tablet 40 mg PO DAILY Discontinued cephalexin 500 mg capsule 500 mg PO QID Qty: 28 0RF Discharge Instructions Instructions: Urinary Tract Infection in Women (ED) Additional Instructions: You were seen in the emergency department for your urinary tract infection. You likely have a kidney infection for which you received a dose of IV antibiotics. As we discussed please return to the emergency department if you cannot eat or drink as result of nausea vomiting or if you develop any fevers. Otherwise please follow-up with your primary care provider later this week for a ultrasound of your kidneys. You should also follow-up with urology. Referrals: [facility] [Provider Group]
[2023-05-09 20:44] LABS: Abs Immature Grans 0.05 10^3/uL (0.0-0.06); Absolute Basophil Count 0.09 10^3/uL (0.0-0.2); Absolute Monocyte Count 0.65 10^3/uL (0.1-0.8); Basophils % 0.7; HCT 41.1 % (36.0-46.0); HGB 13.3 g/dL (11.2-15.7); Immature Grans % 0.4; Lymphocytes % 23.9; MCH 28.3 pg (27.0-33.0); MCHC 32.4 % (32.0-36.0); MCV 87 fL (80-95); MPV 9.6 fL (8.0-11.0); Monocytes % 4.8; Neutrophils % 67.2; Platelet Count 408 10^3/uL (130-400); RDW 13.8 % (11.7-14.6); RDW-SD 44.8 fL
[2023-05-09 20:46] LABS: Absolute Eosinophil Count 0.41 10^3/uL (0.0-0.7); Absolute Lymphocyte Count 3.23 10^3/uL (1.2-3.4); Absolute Neutrophil Count 9.07 10^3/uL (1.2-6.7); Bilirubin Negative (Negative); Blood Negative (Negative); Clarity Clear (Clear); Glucose 100 mg/dL (Negative); Ketones Negative (Negative); Leukocyte Esterase Negative (Negative); Nitrite Positive (Negative); pH 5.5 (5-8)
[2023-05-09 20:54] LABS: Anion Gap 6.6 mmol/L (3-11); BUN 13 mg/dL (7-18); CO2 30.4 mmol/L (21.0-32.0); CREATININE 1.2 mg/dL (0.55-1.02); Calcium 9.1 mg/dL (8.5-10.1); Chloride 99 mmol/L (98-107); Estimated GFR 53.79 (mL/min/1.73m2); Glucose 146 mg/dL (74-106); Potassium 3.8 mmol/L (3.5-5.1); Sodium 136 mmol/L (136-145)
[2023-05-09 20:59] LABS: Bacteria Rare HPF (Negative); C & S Indicated? Yes; Casts Negative LPF (Negative); Crystals Negative HPF (Negative); Epithelial Cells Rare HPF (Negative); Mucus Negative (Negative); RBC 0-2 HPF (0-2); WBC 0-2 HPF (0-5)
[2023-05-09] MEDS: cefTRIAXone 1 GM/50 ML BAG IVPB (21:29)
[2023-05-09 22:02] VITALS: BP 174/91; PULSE 82; RESP 16; O2SAT 99
--- NOTE | 2023-05-09 22:37 | NUR.NOTE ---
Referrals faxed to [facility] (Lina Gordon, and [facility] U[facility] to f/u (PCP) this week for pyelonephritis, Urology per Dr Dominguez.Nursing Note:
[2023-05-09] MEDS: Ketorolac 15 MG/ML VIAL IVP (22:50)
== END 2023-05-09 22:51 | disposition home or self-care (01) ==
PROVIDERS: Emergency Provider Emergency Medicine; PCP Physician Assistant Medical
DX: N10 Acute pyelonephritis (principal)
CPT/HCPCS: 36415; 80048; 96365; 96375; 99284; 81003; 81015; 85025; 87086; J0696; J1885

== ENCOUNTER 2023-06-08 16:39 | Outpatient (REF) | payer MEDICAID, SELFPAY | END 2023-06-08 16:40 | disposition home or self-care (01) | LOC: LBN 16:39 | PROVIDERS: PCP Physician Assistant Medical; Visit Provider Physician Assistant Medical | DX: N39.0 Urinary tract infection, site not specified (principal) | CPT/HCPCS: 87077; 87086; 87186 ==

== ENCOUNTER 2023-06-23 16:22 | Outpatient (REF) | payer MEDICAID, SELFPAY | END 2023-06-23 16:23 | disposition home or self-care (01) | LOC: NCHCN 16:22 | PROVIDERS: PCP Physician Assistant Medical; Visit Provider Physician Assistant Medical | DX: N76.0 Acute vaginitis (principal) | CPT/HCPCS: 87480; 87510; 87660 ==

== ENCOUNTER 2023-07-21 15:14 | Outpatient (REF) | payer MEDICAID, SELFPAY ==
[2023-07-21 20:08] LABS: Anion Gap 11.8 mmol/L (3-11); BUN 20 mg/dL (7-18); CO2 24.2 mmol/L (21.0-32.0); CREATININE 1.2 mg/dL (0.55-1.02); Calcium 9.6 mg/dL (8.5-10.1); Chloride 103 mmol/L (98-107); Estimated GFR 53.46 (mL/min/1.73m2); Glucose 121 mg/dL (74-106); Potassium 4.3 mmol/L (3.5-5.1); Sodium 139 mmol/L (136-145)
[2023-07-21 20:13] LABS: Hemoglobin A1C 7.9 % (<5.7)
== END 2023-07-21 15:15 | disposition home or self-care (01) ==
LOC: NCHCN 15:14
PROVIDERS: PCP Physician Assistant Medical; Visit Provider Physician Assistant Medical
DX: I10 Essential (primary) hypertension (principal); E11.9 Type 2 diabetes mellitus without complications; R30.0 Dysuria
CPT/HCPCS: 80048; 83036; 87086

== ENCOUNTER 2023-11-02 18:26 | Outpatient (REF) | payer MEDICAID, SELFPAY ==
[2023-11-02 20:19] LABS: ALT 16 U/L (14-59); AST 13 U/L (15-37); Albumin 3.1 g/dL (3.4-5.0); Alkaline Phosphatase 105 U/L (46-116); Anion Gap 4.6 mmol/L (3-11); BUN 20 mg/dL (7-18); Bilirubin, Total 0.33 mg/dL (0.2-1.0); CO2 30.4 mmol/L (21.0-32.0); CREATININE 1.3 mg/dL (0.55-1.02); Calcium 9.5 mg/dL (8.5-10.1); Calculated LDL 75 mg/dL (<100); Chloride 104 mmol/L (98-107); Cholesterol 173 mg/dL (<200); Estimated GFR 48.56 (mL/min/1.73m2); Glucose 112 mg/dL (74-106); HDL Cholesterol 41 mg/dL (40-60); Potassium 4.2 mmol/L (3.5-5.1); Sodium 139 mmol/L (136-145); Triglyceride 285 mg/dL (<150)
[2023-11-02 21:19] LABS: Hemoglobin A1C 6.1 % (<5.7)
== END 2023-11-02 18:27 | disposition home or self-care (01) ==
LOC: NCHCN 18:26
PROVIDERS: PCP Physician Assistant Medical; Visit Provider Physician Assistant Medical
DX: E11.9 Type 2 diabetes mellitus without complications (principal); N18.9 Chronic kidney disease, unspecified
CPT/HCPCS: 80053; 80061; 83036

== ENCOUNTER 2024-05-27 13:45 | Outpatient (REF) | payer MEDICAID, SELFPAY ==
[2024-05-27 16:29] LABS: Bilirubin Negative (Negative); Blood Negative (Negative); Clarity Clear (Clear); Glucose Negative (Negative); Ketones Negative (Negative); Leukocyte Esterase Negative (Negative); Nitrite Negative (Negative); Specific Gravity 1.025 (1.005-1.025); Urobilinogen 0.2 mg/dL (Up to 0.2); pH 5.5 (5-8)
== END 2024-05-27 13:46 | disposition home or self-care (01) ==
LOC: LBN 13:45
PROVIDERS: PCP Physician Assistant Medical; Visit Provider Nurse Practitioner Family
DX: R30.0 Dysuria (principal); R01.1 Cardiac murmur, unspecified; U09.9 Post COVID-19 condition, unspecified
CPT/HCPCS: 81003

== ENCOUNTER 2024-07-03 16:10 | Outpatient (REF) | payer MEDICAID, SELFPAY ==
[2024-07-03 19:41] LABS: ALT 96 U/L (14-59); AST 42 U/L (15-37); Alkaline Phosphatase 159 U/L (46-116); Anion Gap 9.4 mmol/L (3-11); BUN 12 mg/dL (7-18); Bilirubin, Total 0.3 mg/dL (0.2-1.0); CO2 28.6 mmol/L (21.0-32.0); Calcium 9.3 mg/dL (8.5-10.1); Chloride 105 mmol/L (98-107); Estimated GFR 66.12 (mL/min/1.73m2); Glucose 115 mg/dL (74-106); Potassium 4.7 mmol/L (3.5-5.1); Sodium 143 mmol/L (136-145); Total Protein 8.1 g/dL (6.4-8.2)
[2024-07-03 19:47] LABS: Hemoglobin A1C 6.4 % (<5.7)
[2024-07-03 20:21] LABS: COMMENT (LAB VIEW ONLY) 176.43 mg/dL; Microalb ug/mg Crea 17.2 ug/mg Cr
== END 2024-07-03 16:11 | disposition home or self-care (01) ==
LOC: NCHCN 16:10
PROVIDERS: PCP Physician Assistant Medical; Visit Provider Physician Assistant Medical
DX: N18.9 Chronic kidney disease, unspecified (principal)
CPT/HCPCS: 80053; 82043; 82570; 83036

== ENCOUNTER 2024-10-09 18:17 | Outpatient (REF) | payer MEDICAID, SELFPAY ==
[2024-10-09 19:48] LABS: Abs Immature Grans 0.06 10^3/uL (0.0-0.06); Absolute Lymphocyte Count 2.93 10^3/uL (1.2-3.4); Absolute Neutrophil Count 7.32 10^3/uL (1.2-6.7); Basophils % 0.9 %; HCT 38.8 % (36.0-46.0); HGB 12.6 g/dL (11.2-15.7); Immature Grans % 0.5 %; Lymphocytes % 25.5 %; MCH 29.9 pg (27.0-33.0); MCHC 32.5 % (32.0-36.0); MCV 92 fL (80-95); MPV 10.8 fL (8.0-11.0); Monocytes % 4.4 %; Neutrophils % 63.7 %; Platelet Count 320 10^3/uL (130-400); RBC 4.22 10^6/uL (3.93-5.22); RDW 14.3 % (11.7-14.6); RDW-SD 46.8 fL; WBC 11.49 10^3/uL (4.4-10.8)
[2024-10-09 19:50] LABS: Absolute Eosinophil Count 0.57 10^3/uL (0.0-0.7); Absolute Monocyte Count 0.51 10^3/uL (0.1-0.8)
[2024-10-09 20:04] LABS: Hemoglobin A1C 6.7 % (<5.7)
[2024-10-09 20:17] LABS: ALT 22 U/L (14-59); Albumin 3.1 g/dL (3.4-5.0); Alkaline Phosphatase 111 U/L (46-116); Anion Gap 8.5 mmol/L (3-11); BUN 19 mg/dL (7-18); Bilirubin, Total 0.3 mg/dL (0.2-1.0); CO2 26.5 mmol/L (21.0-32.0); Calcium 9.2 mg/dL (8.5-10.1); Chloride 103 mmol/L (98-107); Cholesterol 307 mg/dL (<200); Estimated GFR 66.12 (mL/min/1.73m2); Glucose 163 mg/dL (74-106); HDL Cholesterol 36 mg/dL (>or=50); Potassium 4.1 mmol/L (3.5-5.1); Sodium 138 mmol/L (136-145); TSH 1.98 uIU/mL (0.36-3.74); Triglyceride 666 mg/dL (<150)
[2024-10-09 20:28] LABS: AST 25 U/L (15-37)
[2024-10-09 20:38] LABS: FREE T4 0.76 ng/dL (0.76-1.46)
[2024-10-09 20:49] LABS: LDL CHOLESTEROL 99 mg/dL (<100)
== END 2024-10-09 18:18 | disposition home or self-care (01) ==
LOC: NCHCN 18:17
PROVIDERS: PCP Physician Assistant Medical; Visit Provider Physician Assistant Medical
DX: E11.9 Type 2 diabetes mellitus without complications (principal); K76.0 Fatty (change of) liver, not elsewhere classified; R22.1 Localized swelling, mass and lump, neck
CPT/HCPCS: 80053; 80061; 83721; 83036; 84439; 84443; 85025

== ENCOUNTER 2024-11-07 16:27 | Outpatient (REF) | payer MEDICAID, SELFPAY ==
[2024-11-07 21:04] LABS: Calculated LDL 108 mg/dL (<100); Cholesterol 188 mg/dL (<200); HDL Cholesterol 39 mg/dL (>or=50); Triglyceride 205 mg/dL (<150)
== END 2024-11-07 16:28 | disposition home or self-care (01) ==
LOC: NCHCN 16:27
PROVIDERS: PCP Physician Assistant Medical; Visit Provider Physician Assistant Medical
DX: E78.1 Pure hyperglyceridemia (principal)
CPT/HCPCS: 80061

== ENCOUNTER 2025-01-17 18:10 | Outpatient (REF) | payer MEDICAID, SELFPAY ==
[2025-01-17 20:52] LABS: ALT 17 U/L (14-59); AST 18 U/L (15-37); Albumin 3.3 g/dL (3.4-5.0); Alkaline Phosphatase 109 U/L (46-116); Anion Gap 7.6 mmol/L (3-11); BUN 15 mg/dL (7-18); Bilirubin, Total 0.3 mg/dL (0.2-1.0); CO2 28.4 mmol/L (21.0-32.0); Calcium 9.1 mg/dL (8.5-10.1); Chloride 105 mmol/L (98-107); Estimated GFR 48.26 (mL/min/1.73m2); Glucose 105 mg/dL (74-106); Potassium 4.2 mmol/L (3.5-5.1); Sodium 141 mmol/L (136-145); Total Protein 8.1 g/dL (6.4-8.2)
[2025-01-17 20:54] LABS: Hemoglobin A1C 5.5 % (<5.7)
== END 2025-01-17 18:11 | disposition home or self-care (01) ==
LOC: NCHCN 18:10
PROVIDERS: PCP Physician Assistant Medical; Visit Provider Physician Assistant Medical
DX: N18.9 Chronic kidney disease, unspecified (principal); E11.9 Type 2 diabetes mellitus without complications
CPT/HCPCS: 80053; 83036